=== PATIENT | female | born 2000 | race Caucasian/White ===

== ENCOUNTER 2022-07-14 02:46 | Emergency (ER) | payer OTHER ==
[~2022-07-14] VITALS: Ht 172.7 cm; Wt 125.0 kg
[2022-07-14] MEDS ORDERED: CLON-592 PO (03:14)
[2022-07-14] MEDS ORDERED: LUMA42CA PO (03:14)
[2022-07-14 04:17] VITALS: BP 109/75
== END 2022-07-14 04:19 | disposition home or self-care (01) ==
LOC: EMS 02:49
DX: R07.89 Other chest pain (principal); T50.905A Adverse effect of unspecified drugs, medicaments and biological substances, initial encounter; F31.9 Bipolar disorder, unspecified; F41.9 Anxiety disorder, unspecified; Y92.89 Other specified places as the place of occurrence of the external cause
CPT/HCPCS: 93005; 99283